=== PATIENT | female | born 1965 | race Caucasian/White ===

== ENCOUNTER 2025-03-13 14:20 | Outpatient (RCR) | payer MEDICARE, SELFPAY ==
[2025-03-13 14:33] VITALS: BP 136/78
[2025-03-13] MEDS: EVENITY 105 MG SC ×2 (14:54)
== END 2025-03-16 09:08 | disposition home or self-care (01) ==
LOC: OID 14:20
PROVIDERS: ATTENDING PHYSICIAN Nurse Practitioner Family; FAMILY PHYSICIAN Family Medicine
DX: M81.0 Age-related osteoporosis without current pathological fracture (principal)
CPT/HCPCS: 96372; J3111

== ENCOUNTER 2025-04-10 14:26 | Outpatient (RCR) | payer MEDICARE, SELFPAY ==
[2025-04-10 14:39] VITALS: BP 137/85
[2025-04-10] MEDS: EVENITY 105 MG SC ×2 (14:54)
== END 2025-04-13 12:40 | disposition home or self-care (01) ==
LOC: OID 14:26
PROVIDERS: ATTENDING PHYSICIAN Nurse Practitioner Family; FAMILY PHYSICIAN Family Medicine
DX: M81.0 Age-related osteoporosis without current pathological fracture (principal)
CPT/HCPCS: 96372; J3111

== ENCOUNTER 2025-05-11 14:21 | Outpatient (RCR) | payer MEDICARE, SELFPAY ==
[2025-05-11 14:39] VITALS: BP 124/78; BMI 27.0
[2025-05-11] MEDS: EVENITY 105 MG SC ×2 (14:48)
== END 2025-05-12 09:21 | disposition home or self-care (01) ==
LOC: OID 14:21
PROVIDERS: ATTENDING PHYSICIAN Nurse Practitioner Family; FAMILY PHYSICIAN Family Medicine
DX: M81.0 Age-related osteoporosis without current pathological fracture (principal)
CPT/HCPCS: 96372; J3111

== ENCOUNTER 2025-06-12 14:34 | Outpatient (RCR) | payer MEDICARE, SELFPAY ==
[2025-06-12 14:35] VITALS: BP 142/80
[2025-06-12] MEDS: EVENITY 105 MG SC ×2 (14:48)
== END 2025-06-15 08:19 | disposition home or self-care (01) ==
LOC: OID 14:34
PROVIDERS: ATTENDING PHYSICIAN Nurse Practitioner Family; FAMILY PHYSICIAN Family Medicine
DX: M81.0 Age-related osteoporosis without current pathological fracture (principal)
CPT/HCPCS: 96372; J3111